=== PATIENT | female | born 1985 | race Caucasian/White ===

== ENCOUNTER 2024-02-25 20:26 | Emergency (ER) | payer OTHER, SELFPAY ==
[2024-02-25 20:34] VITALS: BP 138/89; PULSE 89; TEMP 37; O2SAT 97; BMI 29.8
--- NOTE | 2024-02-25 20:44 | ED.GENADUL1 ---
HPI HPI - General Adult General Chief complaint: Dental/Oral Stated complaint: TONGUE SWELLING/PAIN Time Seen by Provider: 02/25/24 20:29 Source: patient Mode of arrival: walk-in Limitations: no limitations History of Present Illness HPI narrative: Patient is a 38-year-old female who presents to the emergency department for occasional pain and swelling in the tongue for the last several days. She further complains of pain in the right great toe where she noted an ingrown toenail and has been soaking the area but it seems to be getting worse. She has had no fevers or drainage. She is not concerned for . She went to a different emergency department to have the tongue pain and swelling evaluated and was diagnosed with a geographic tongue. She states certain foods seem to make it worse where her tongue darby, swells and is painful. No medications prior to arrival. Related Data Previous Rx's ?Medication ?Instructions ?Recorded amoxicillin 875 mg-potassium 1 tab PO BID #14 tabs 02/25/24 clavulanate 125 mg tablet ketorolac 10 mg tablet 10 mg PO TID PRN pain #6 tabs 02/25/24 prednisone 20 mg tablet 60 mg (3 x 20 mg) PO DAILY 3 days 02/25/24 #9 tabs Allergies Allergy/AdvReac Type Severity Reaction Status Date / Time No Known Drug Allergies Allergy Verified 02/25/24 20:34 Opioid HPI Opioid Management Most Recent Opioid Data: Last Pain Scale 5 02/25/24 20:48 Review of Systems ROS Constitutional Denies: fever or chills Ears, nose, mouth, and throat Denies: throat pain or nasal congestion Cardiovascular Denies: chest pain Respiratory Denies: shortness of breath Gastrointestinal Denies: nausea or vomiting Musculoskeletal Denies: back pain or neck pain Integumentary/Breast Denies: rash Neurological Denies: numbness in extremities or weakness in extremities Hematologic/Lymphatic Denies: easy bruising or easy bleeding PFSH PFSH Social History Little interest or pleasure in doing things: not at all Feeling down, depressed, or hopeless: not at all Exam Narrative Exam Narrative: Gen.: Awake, alert, in no distress Head: Normocephalic, atraumatic ENT: Moist mucous membranes, no evidence of tongue swelling at this time. Airway is widely open and patent with clear speech. Uvula midline. Red patches noted with occasional white coloration, no large white patches or evidence of thrush at this time Respiratory: No respiratory distress Extremities: Moves extremities equally, right great toe is edematous surrounding the ingrown toenail, erythematous and tender to palpation with crusting noted medially, no paronychia or fluctuance noted Psych: Normal mood and affect Neuro: No focal neuro deficit Skin: Warm, dry, intact Constitutional Vital Signs, click to edit/add: Last Vital Signs Temp 98.6 F 02/25/24 20:34 Pulse 89 02/25/24 20:34 Resp 18 02/25/24 20:34 BP 138/89 02/25/24 20:34 Pulse Ox 97 02/25/24 20:34 O2 Del Method Room Air 02/25/24 20:34 Course Vital Signs Vital signs: Vital Signs Temperature 98.6 F 02/25/24 20:34 Pulse Rate 89 02/25/24 20:34 Respiratory Rate 18 02/25/24 20:34 Blood Pressure 138/89 02/25/24 20:34 Pulse Oximetry 97 02/25/24 20:34 Oxygen Delivery Method Room Air 02/25/24 20:34 Temperature 98.6 F 02/25/24 20:34 Pulse Rate 89 02/25/24 20:34 Respiratory Rate 18 02/25/24 20:34 Blood Pressure 138/89 02/25/24 20:34 Pulse Oximetry 97 02/25/24 20:34 Oxygen Delivery Method Room Air 02/25/24 20:34 Medical Decision Making MDM Narrative Medical decision making narrative: Exam is consistent with geographic tongue and ingrown toenail with infection of the right great toe. Patient started on Augmentin, NSAIDs and a short course of prednisone. No indication for nystatin at this time. Magic mouthwash given for comfort. Follow-up with podiatry and return to the ER if symptoms change or worsen SUPERVISED APC VISIT, PHYSICIAN ATTESTATION: Based on the medical record the care appears appropriate. ? Medical Records Medical records reviewed: Yes I reviewed the patient's medical records Discharge Plan Discharge Chief Complaint: Dental/Oral Clinical Impression: Painful tongue, Ingrowing toenail with infection Patient Disposition: Home, Self-Care Time of Disposition Decision: 20:42 Condition: Good Mode of Transportation: Private Vehicle Prescriptions / Home Meds: New prednisone 20 mg tablet 60 mg PO DAILY 3 Days Qty: 9 0RF ketorolac 10 mg tablet 10 mg PO TID PRN (Reason: pain) Qty: 6 0RF amoxicillin-pot clavulanate 875-125 mg tablet 1 tab PO BID Qty: 14 0RF Print Language: Lithuanian Instructions: Jaevd Nail (ED), Geographic Tongue (ED) Referrals: Physician,Non-Staff, [Primary Care Provider] - 1 week Wade Gorman DPM [Physician] - As soon as possible Discharge Date/Time: 02/25/24 21:06
--- NOTE | 2024-02-25 20:49 | PC.NURSE ---
PT STATES OFF AND ON PAINFUL TONGUE SWELLING WITH RED AND WHITE PATCHES OFF AND ON SINCE OCTOBER THIS YEAR.
[2024-02-25] MEDS: AMOXICILLIN/POTASSIUM CLAV 1 TAB TABLET PO (21:01)
[2024-02-25] MEDS: PREDNISONE 20 MG TABLET 60 MG PO (21:01)
== END 2024-02-25 21:06 | disposition home or self-care (01) ==
PROVIDERS: Emergency Provider Internal Medicine
DX: L08.9 Local infection of the skin and subcutaneous tissue, unspecified (principal); L60.0 Ingrowing nail; K14.6 Glossodynia; K14.1 Geographic tongue
CPT/HCPCS: 99283; J7512